=== PATIENT | male | born 1995 | race Two or more races ===

== ENCOUNTER 2024-08-02 13:02 | Emergency (ER) | payer BC, MEDICAID, OTHER ==
[~2024-08-02] VITALS: Ht 172.7 cm; Wt 86.0 kg
[2024-08-02 13:19] VITALS: RESP 18; O2SAT 95
--- NOTE | 2024-08-02 14:07 | ED.PDOC ---
SOB-HPI HPI Comments 29 y/o M, presents to the ED for CC of shortness of breath. Patient states, he has been experiencing shortness of breath with intermittent chest pain since 1000 today while at the gym (08/02/24). Patient comments on, having a similar episode last week and has experienced similar symptoms in the past with a lung DVT. Patient relays, that he is not currently taking blood thinners and should be starting them soon per PCP. Patient denies current active chest pain, lightheadedness, or headache. No other symptoms or modifying factors at this time. Chief Complaint: Shortness of Breath Time Seen by MD: 13:50 Primary Care Provider: CASTILLO Ryder notes: Nurses Notes, Medications, Allergies Information Source: Patient Mode of Arrival: Ambulatory Severity: Moderate Timing: Hours Duration: Since onset Context: With Light Exertion PE Risk Factors: None History of: DVT/PE Prehospital treatment: None Modifying Factors: Nothing Past Medical History PAST MEDICAL HISTORY: Denies Surgical History: Denies all surgeries Family History Family History: Unknown Social History Smoker: Cigar Alcohol: Occasionally Drugs: Denies Drug Use Lives In: Home Constitutional: denies: chills, diaphoresis, fatigue, fever, malaise, sweats, weakness, others EENTM: denies: blurred vision, double vision, ear bleeding, ear discharge, ear drainage, ear pain, ear ringing, eye pain, eye redness, hearing loss, mouth pain, mouth swelling, nasal discharge, nose bleeding, nose congestion, nose pain, photophobia, tearing, throat pain, throat swelling, voice changes, others Respiratory: reports: shortness of breath; denies: cough, hemoptysis, orthopnea, SOB at rest, SOB with excertion, stridor, wheezing, others Cardiovascular: reports: chest pain; denies: dizzy spells, diaphoresis, Dyspnea on exertion, edema, irregular heart beat, left arm pain, lightheadedness, palpitations, PND, syncope, others Gastrointestinal: denies: abdomen distended, abdominal pain, blood streaked bowels, constipated, diarrhea, dysphagia, difficulty swallowing, hematemesis, melena, nausea, poor appetite, poor fluid intake, rectal bleeding, rectal pain, vomiting, others Genitourinary: denies: burning, dysuria, flank pain, frequency, hematuria, incontinence, penile discharge, penile sore, pain, testicle pain, testicle swelling, urgency, others Neurological: denies: dizziness, fainting, headache, left sided numbness, left sided weakness, numbness, paresthesia, pre-existing deficit, right sided numbness, right sided weakness, seizure, speech problems, tingling, tremors, weakness, others Musculoskeletal: denies: back pain, gout, joint pain, joint swelling, muscle pain, muscle stiffness, neck pain, others Integumetry: denies: bruises, change in color, change in hair/nails, dryness, laceration, lesions, lumps, rash, wounds, others Allergic/Immunocompromised: denies: Difficulty Healing, Frequent Infections, Hives, Itching, others Hematologic/Lymphatic: denies: anemia, blood clots, easy bleeding, easy bruising, swollen glands, others Endocrine: denies: excessive hunger, excessive sweating, excessive thirst, excessive urination, flushing, intolerance to cold, intolerance to heat, unexplained weight gain, unexplained weight loss, others Psychiatric: denies: anxiety, bipolar disorder, depression, hopeless, panic disorder, schizophrenia, sleepless, suicidal, others All Other Systems: Reviewed and Negative Physical Exam General Appearance: No Apparent Distress HEENT: Normal ENT Inspection, Pharynx Normal, TMs Normal Neck: Full Range of Motion, Non-Tender, Normal, Normal Inspection Respiratory: Chest Non-Tender, Lungs Clear, No Accessory Muscle Use, No Respiratory Distress, Normal Breath Sounds Cardiovascular: No Edema, No JVD, No Murmur, No Gallop, Normal Peripheral Pulses, Regular Rate/Rhythm Breast Exam: Deferred Gastrointestinal: No Organomegaly, Non Tender, No Pulsatile Mass, Normal Bowel Sounds, Soft Genitalia: Deferred Pelvic: Deferred Rectal: Deferred Extremities: Calf tenderness (Right-sided calf tenderness), No calf tenderness, Normal capillary refill, No pedal edema Musculoskeletal : Apperance: Normal Neurologic: 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 Was a procedure done?: No Differential Dx Differential Diagnosis: Anxiety, Pulmonary Embolism, Pharyngitis, URI X-Ray, Labs, Meds, VS Vital Signs Date Time Temp Pulse Resp B/P (MAP) Pulse Ox O2 Delivery O2 Flow Rate FiO2 08/02/24 14:07 78 08/02/24 13:19 99.1 100 20 133/80 (97) 96 Ultrasound of the right lower extremity shows: Impression: Nonocclusive DVT right lower extremity. The patient was being discharged The patient is currently on a blood thinner and will continuous medications The patient will follow up with his primary care doctor The patient will return to the emergency department's condition worsens. Images Reviewed?: Images reviewed and evaluated by me Time of 1ST Reevaluation: 14:20 Reevaluation 1ST: Unchanged Time of 2ND Reevaluation: 15:56 Reevaluation 2ND: Unchanged Patient Education/Counseling: Diagnosis, Treatment, Prognosis, Need For Follow Up Family Education/Counseling: No Family Present Additional Information - I reviewed the following notes from patient's past medical encounters: NONE - The following tests were ordered, and results were reviewed by me: RT LOWER DVT US - I reviewed and agreed with the following test results read by other provider: RT LOWER DVT US - I discussed treatments and results with medical personnel and: NONE Departure 1 Departure Time of Disposition: 15:56 Impression: Primary Impression: Right leg DVT Qualified Codes: I82.431 - Acute embolism and thrombosis of right popliteal vein Disposition: 01 HOME / SELF CARE / HOMELESS Condition: Fair Discharged With: Self Critical Care Note Critical Care Time?: No Stability Stability form required: No Heart Score Heart Score: Heart Score Response (Comments) Value History N/A 0 EKG N/A 0 Age N/A 0 Risk Factors N/A 0 Troponin N/A 0 Total 0 I personally scribed for GALO BROUSSARD MD ([email or web address]) on 08/02/24 at 14:07. Electronically submitted by Viktoria Grant ([email or web address]). I personally scribed for GALO BROUSSARD MD ([email or web address]) on 08/02/24 at 15:08. Electronically submitted by Viktoria Grant ([email or web address]). GALO BROUSSARD MD Aug 02, 2024 14:07
--- NOTE | 2024-08-02 15:37 | DVH ---
Right lower extremity venous duplex Clinical History: pain Comparison: None Findings: Duplex Doppler evaluation of the deep venous system of the right lower extremity from the common femo ral vein to the popliteal vein including color Doppler and spectral/pulsed waveform analysis was perf ormed. The common femoral vein demonstrates appropriate compressibility and waveform variability . There is compressibility/patency of the great saphenous vein at the proximal thigh . The femoral vein demonstrates appropriate compressibility and waveform variability . The deep femoral vein demonstrates appropriate compressibility and waveform variability . Thrombus in the popliteal vein. There is normal compressibility at the tibioperoneal trunk. Impression: Nonocclusive DVT right lower extremity. If clinical concern/symptoms persist or worsen, short-interval follow-up study is suggested.
[2024-08-02] MEDS: ENOXAPARIN SOD 100 MG/1 ML SYRINGE SC ONE (17:22)
[2024-08-02] MEDS: IOHEXOL 350 MG/ML 100ML IJ ONE (19:29)
--- NOTE | 2024-08-02 19:53 | DVH ---
CTA Chest with intravenous contrast INDICATION: cp COMPARISON: [Comparison] TECHNIQUE: Multidetector spiral CTA of the chest was performed of the chest with intravenous contrast . PULMONARY ANGIOGRAPHY PROTOCOL was utilized using a bolus-tracking technique centered on the main p ulmonary artery. Axial, coronal and sagittal multiplanar and MIP reformats were performed. Radiation Dose : 1. Chest: CTDI volume is 22.43 mGy. Dose-length product is 763.86 mGy*cm The dose indicators for CT are the volume Computed Tomography (CT) Dose Index (CTDIvol) and the Dose Length Product (DLP), and are measured in units of mGy and mGy-cm, respectively. These indicators are not patient dose, but values generated from the CT scanner acquisition factors. The report includes radiation exposure data for exposures received during this examination. Findings: Pulmonary artery: No evidence of pulmonary embolism. Lower neck: Unremarkable. Lungs: No focal consolidation, pleural effusion or pneumothorax. Very mild subsegmental atelectasis a t the left lung base. Very mild nonspecific groundglass opacities at the lung bases. Heart/Vascular Structures: Normal heart size. No pericardial effusion. Lymph Nodes: No lymphadenopathy Musculoskeletal: No osseous abnormality. Soft tissues: Unremarkable. Visualized upper abdomen: Unremarkable. IMPRESSION: No evidence of pulmonary embolism.
[2024-08-02 21:51] VITALS: BP 137/71; PULSE 64; TEMP 98.9
[2024-08-02 21:52] VITALS: RESP 16; O2SAT 99
--- NOTE | 2024-08-03 14:51 | ECG ---
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
== END 2024-08-02 22:05 | disposition home or self-care (01) ==
LOC: ER 13:02
DX: I82.431 Acute embolism and thrombosis of right popliteal vein (principal); F17.290 Nicotine dependence, other tobacco product, uncomplicated
CPT/HCPCS: 71275; 93971; 99285; J1650; Q9967; 93005